=== PATIENT | female | born 1940 | race Caucasian/White ===

== ENCOUNTER 2024-10-20 01:09 | Inpatient (IN) ==
[2024-10-20] MEDS: IPRATROPIUM/ALBUTEROL 3 ML AMPUL.NEB NEB ONE (01:30)
[2024-10-20 02:07] LABS: Basophils # (Auto) 0.07 K/mcL (0.00-0.30); Basophils % (Auto) 0.8 % (0.0-2.0); Eosinophils # (Auto) 0.51 K/mcL (0.00-0.70); Eosinophils % (Auto) 5.9 % (0.0-7.0); Hematocrit 31.4 % (34.1-44.9); Hemoglobin 9.6 g/dL (11.2-15.7); Lymphocytes # (Auto) 0.92 K/mcL (1.50-4.80); Lymphocytes % (Auto) 10.7 % (15.5-49.0); Mean Cell Volume 97.2 fL (80.0-100.0); Mean Corpuscular HGB Conc 30.6 g/dL (31.0-36.0); Mean Platelet Volume 8.9 fL (8.8-12.5); Monocytes # (Auto) 1.56 K/mcL (0.10-0.90); Monocytes % (Auto) 18.1 % (1.0-12.0); Neutrophils % (Auto) 64.3 % (38.0-78.0); Platelet Count 233 K/mcL (140-440); RBC 3.23 M/mcL (3.59-5.38); Red Cell Distribution Width 15.2 % (11.5-14.5); WBC 8.6 K/mcL (4.5-11.0)
[2024-10-20 02:11] LABS: ALT/SGPT 13 U/L (<40); AST/SGOT 21 U/L (<32); Albumin 3.5 gm/dL (3.2-5.2); Albumin/Globulin Ratio 1.3 (1.0-2.3); Alkaline Phosphatase 116 U/L (39-117); Bilirubin,Total 0.3 mg/dL (0.1-1.0); Blood Urea Nitrogen 25 mg/dL (8-23); Calcium 8.4 mg/dL (8.6-10.4); Carbon Dioxide 27 mmol/L (22-30); Chloride 99 mmol/L (96-108); Globulin 2.7 gm/dL (2.2-3.7); Glomerular Filtration Rate 9; Glucose 132 mg/dL (70-105); Potassium 4.5 mmol/L (3.3-5.1); Sodium 139 mmol/L (133-145)
[2024-10-20] MEDS: cefTRIAXone 1 GM VIAL IV ONE (03:39)
[2024-10-20] MEDS ORDERED: ONDANSETRON 4 MG/2 ML VIAL IV PRN ×2 (03:48→08:49)
[2024-10-20] MEDS ORDERED: IPRATROPIUM/ALBUTEROL 3 ML AMPUL.NEB NEB PRN ×2 (03:48→08:49)
[2024-10-20] MEDS ORDERED: HEPARIN 10,000 UNIT/10 ML VIAL IV PRN (06:09)
[2024-10-20] MEDS ORDERED: 0.9 % SODIUM CHLORIDE 1,000 ML IV PRN (06:09)
[2024-10-20] MEDS ORDERED: ALBUTEROL SULFATE 60 PUFF INHALER INH PRN (08:47)
[2024-10-20] MEDS ORDERED: traZODone HCL 50 MG TABLET PO PRN (08:49)
[2024-10-20] MEDS ORDERED: guaiFENesin/DEXTROMETHORPHAN 5ML UD CUP PO PRN (08:52)
[2024-10-20] MEDS: FLUTICASONE/SALMETEROL 250/50 INHALER #14 INH SCH (10:25)
[2024-10-20] MEDS: CRANBERRY 4200 MG PO SCH (11:03)
[2024-10-20] MEDS: SEVELAMER 800 MG TABLET PO SCH (11:04)
[2024-10-20] MEDS: MONTELUKAST 10 MG TABLET PO SCH (11:05)
[2024-10-20] MEDS: FUROSEMIDE 40 MG TABLET PO SCH (11:05)
[2024-10-20] MEDS: OMEPRAZOLE 20 MG CAPSULE PO SCH (11:06)
[2024-10-20] MEDS: APIXABAN 2.5 MG TABLET PO SCH (11:07)
[2024-10-20] MEDS: SERTRALINE 50 MG TABLET PO SCH (11:07)
[2024-10-20] MEDS: CALCITRIOL 0.25 MCG CAPSULE PO SCH (11:07)
[2024-10-20] MEDS: CALCIUM POLYCARBOPHIL 1 TABLET PO SCH (11:08)
[2024-10-20] MEDS: CINACALCET 30 MG TABLET PO SCH (11:08)
[2024-10-20] MEDS: VITAMIN D3 125 MCG TABLET PO SCH (11:08)
[2024-10-20] MEDS: FOLIC ACID/VITAMIN B COMP W-C 1 TAB TABLET PO SCH (11:09)
[2024-10-20] MEDS: DOCUSATE SODIUM 100 MG CAPSULE PO SCH (11:12)
[2024-10-20] MEDS: ROSUVASTATIN 10 MG TABLET PO SCH (11:13)
[2024-10-20] MEDS: LOPERAMIDE 2 MG CAPSULE PO SCH (11:16)
[2024-10-20] MEDS: ACETAMINOPHEN 325 MG TABLET PO SCH (11:21)
[2024-10-20] MEDS: GABAPENTIN 100 MG CAPSULE PO SCH (14:03)
[2024-10-20] MEDS: AZITHROMYCIN 500 MG in 0.9 % SODIUM CHLORIDE 250 ML IV SCH (14:17)
[2024-10-20] MEDS: 0.9 % SODIUM CHLORIDE 10 ML SYRINGE IV SCH (14:19)
[2024-10-20] MEDS: cefTRIAXone 2 GM in DEXTROSE 5% IN WATER 50 ML IV SCH (17:00)
[2024-10-20] MEDS: MIRTAZAPINE 15 MG TABLET PO SCH (20:24)
[2024-10-20] MEDS: SENNOSIDES 1 TABLET PO SCH (20:24)
[2024-10-21 06:22] LABS: Basophils # (Auto) 0.08 K/mcL (0.00-0.30); Basophils % (Auto) 0.9 % (0.0-2.0); Eosinophils # (Auto) 0.41 K/mcL (0.00-0.70); Eosinophils % (Auto) 4.8 % (0.0-7.0); Hematocrit 31.7 % (34.1-44.9); Hemoglobin 9.4 g/dL (11.2-15.7); Lymphocytes # (Auto) 0.92 K/mcL (1.50-4.80); Lymphocytes % (Auto) 10.8 % (15.5-49.0); Mean Corpuscular HGB Conc 29.7 g/dL (31.0-36.0); Monocytes # (Auto) 1.97 K/mcL (0.10-0.90); Monocytes % (Auto) 23.2 % (1.0-12.0); Neutrophils % (Auto) 60.1 % (38.0-78.0); Platelet Count 198 K/mcL (140-440); RBC 3.17 M/mcL (3.59-5.38); Red Cell Distribution Width 15.2 % (11.5-14.5); WBC 8.5 K/mcL (4.5-11.0)
[2024-10-21 06:37] LABS: Phosphorous 2.5 mg/dL (2.5-4.5)
[2024-10-21 06:40] LABS: ALT/SGPT 10 U/L (<40); AST/SGOT 16 U/L (<32); Albumin 3.3 gm/dL (3.2-5.2); Albumin/Globulin Ratio 1.3 (1.0-2.3); Alkaline Phosphatase 94 U/L (39-117); Bilirubin,Total 0.3 mg/dL (0.1-1.0); Blood Urea Nitrogen 14 mg/dL (8-23); Calcium 8.3 mg/dL (8.6-10.4); Carbon Dioxide 27 mmol/L (22-30); Chloride 98 mmol/L (96-108); Globulin 2.6 gm/dL (2.2-3.7); Glomerular Filtration Rate 14; Glucose 91 mg/dL (70-105); Potassium 4.7 mmol/L (3.3-5.1); Sodium 135 mmol/L (133-145)
[2024-10-21] MEDS: VILANTEROL INH SCH (08:10)
[2024-10-21] MEDS: UMECLIDINIUM INH SCH (08:10)
[2024-10-21] MEDS: FLUTICASONE FUROATE INH SCH (08:10)
[2024-10-21] MEDS ORDERED: NON FORMULARY MEDICATION 1 DOSE MISCELL (Fluticasone-Umeclidin-Vilanter [Trelegy Ellipta] INHALATION SCH (09:00)
[2024-10-21] MEDS: METOPROLOL SUCCINATE 50 MG TAB.XL.24H PO SCH (12:10)
[2024-10-21] MEDS: BACLOFEN 10 MG TABLET PO PRN (12:11)
[2024-10-22 06:20] LABS: Phosphorous 3.3 mg/dL (2.5-4.5)
[2024-10-22 06:21] LABS: ALT/SGPT 9 U/L (<40); AST/SGOT 15 U/L (<32); Albumin 2.9 gm/dL (3.2-5.2); Albumin/Globulin Ratio 1.1 (1.0-2.3); Alkaline Phosphatase 89 U/L (39-117); Bilirubin,Total 0.3 mg/dL (0.1-1.0); Blood Urea Nitrogen 26 mg/dL (8-23); Calcium 8.2 mg/dL (8.6-10.4); Carbon Dioxide 26 mmol/L (22-30); Chloride 99 mmol/L (96-108); Globulin 2.6 gm/dL (2.2-3.7); Glomerular Filtration Rate 9; Glucose 88 mg/dL (70-105); Potassium 4.3 mmol/L (3.3-5.1); Sodium 134 mmol/L (133-145)
[2024-10-22 06:26] LABS: Basophils # (Auto) 0.06 K/mcL (0.00-0.30); Basophils % (Auto) 0.9 % (0.0-2.0); Eosinophils # (Auto) 0.53 K/mcL (0.00-0.70); Eosinophils % (Auto) 7.7 % (0.0-7.0); Hematocrit 27.9 % (34.1-44.9); Hemoglobin 8.6 g/dL (11.2-15.7); Lymphocytes # (Auto) 1.14 K/mcL (1.50-4.80); Lymphocytes % (Auto) 16.5 % (15.5-49.0); Mean Cell Volume 97.9 fL (80.0-100.0); Mean Corpuscular HGB Conc 30.8 g/dL (31.0-36.0); Mean Platelet Volume 9.2 fL (8.8-12.5); Monocytes # (Auto) 1.36 K/mcL (0.10-0.90); Monocytes % (Auto) 19.7 % (1.0-12.0); Neutrophils % (Auto) 54.9 % (38.0-78.0); Platelet Count 190 K/mcL (140-440); RBC 2.85 M/mcL (3.59-5.38); Red Cell Distribution Width 15.2 % (11.5-14.5); WBC 6.9 K/mcL (4.5-11.0)
[2024-10-22] MEDS: AZITHROMYCIN 250 MG TABLET PO SCH (08:18)
== END 2024-10-22 13:34 | disposition home health service (06) | DRG 193 ==
LOC: ED 01:09 → ICU 03:58
PROVIDERS: ADMIT Internal Medicine; ATTEND Internal Medicine

== ENCOUNTER 2024-10-23 08:47 | Inpatient (IN) ==
[2024-10-23] MEDS ORDERED: IOPAMIDOL 100 ML BOTTLE IV ONE (08:48)
[2024-10-23 10:03] LABS: Basophils # (Auto) 0.06 K/mcL (0.00-0.30); Eosinophils # (Auto) 0.44 K/mcL (0.00-0.70); Eosinophils % (Auto) 7.3 % (0.0-7.0); Hematocrit 31.1 % (34.1-44.9); Hemoglobin 9.7 g/dL (11.2-15.7); Lymphocytes # (Auto) 1.33 K/mcL (1.50-4.80); Lymphocytes % (Auto) 22.1 % (15.5-49.0); Mean Cell Volume 96.3 fL (80.0-100.0); Mean Corpuscular HGB Conc 31.2 g/dL (31.0-36.0); Mean Platelet Volume 9.3 fL (8.8-12.5); Monocytes % (Auto) 13.3 % (1.0-12.0); Neutrophils % (Auto) 56.1 % (38.0-78.0); Platelet Count 271 K/mcL (140-440); RBC 3.23 M/mcL (3.59-5.38); Red Cell Distribution Width 15.2 % (11.5-14.5)
[2024-10-23 10:26] LABS: Thyroid Stimulating Hormone 1.53 uIU/mL (0.27-5.01)
[2024-10-23 10:30] LABS: ALT/SGPT 11 U/L (<40); AST/SGOT 18 U/L (<32); Albumin 3.3 gm/dL (3.2-5.2); Albumin/Globulin Ratio 1.1 (1.0-2.3); Alkaline Phosphatase 102 U/L (39-117); Bilirubin,Total < 0.2 mg/dL (0.1-1.0); Blood Urea Nitrogen 34 mg/dL (8-23); Calcium 8.7 mg/dL (8.6-10.4); Carbon Dioxide 23 mmol/L (22-30); Chloride 100 mmol/L (96-108); Globulin 2.9 gm/dL (2.2-3.7); Glomerular Filtration Rate 7; Glucose 91 mg/dL (70-105); Potassium 4.7 mmol/L (3.3-5.1); Sodium 136 mmol/L (133-145)
[2024-10-23 11:00] LABS: Free T4 (Free Thyroxine) 1.05 ng/dL (0.93-1.70)
[2024-10-23 11:15] LABS: Appearance,Urine Clear (Clear); Bacteria,Urine Rare /hpf (0); Bilirubin,Urine Negative (Negative); Color,Urine Yellow; Glucose,Urine (UA) Negative (Negative); Ketones,Urine Negative (Negative); Leukocyte Esterase,Urine Small /uL (Negative); Nitrate,Urine Negative (Negative); PH,Urine 7.5 (5.0-9.0); Protein,Urine 100 mg/dL (Negative); Specific Gravity,Urine 1.015 (1.000-1.035); Urine Blood Trace-intact ery/mcL (Negative); Urine RBC 5 /hpf (0-3); Urine Squamous Epithelial Cell 7 /hpf (0-4); Urine WBC 2 /hpf (0-4); Urobilinogen,Urine Normal
[2024-10-23] MEDS ORDERED: ACETAMINOPHEN 325 MG TABLET PO PRN (14:22)
[2024-10-23] MEDS ORDERED: IPRATROPIUM/ALBUTEROL 3 ML AMPUL.NEB NEB PRN (14:22)
[2024-10-23] MEDS: 0.9 % SODIUM CHLORIDE 10 ML SYRINGE IV SCH (16:41)
[2024-10-23] MEDS: SEVELAMER 800 MG TABLET PO SCH (16:41)
[2024-10-23] MEDS: MIRTAZAPINE 15 MG TABLET PO SCH (20:54)
[2024-10-23] MEDS: APIXABAN 2.5 MG TABLET PO SCH (20:54)
[2024-10-23] MEDS: cefTRIAXone 1 GM VIAL IV SCH (20:55)
[2024-10-23] MEDS ORDERED: AZITHROMYCIN 500 MG in 0.9 % SODIUM CHLORIDE 250 ML IV SCH (21:00)
[2024-10-23] MEDS: DOXYCYCLINE 100 MG in DEXTROSE 5% IN WATER 100 ML IV SCH (21:45)
[2024-10-24 06:32] LABS: Basophils # (Auto) 0.08 K/mcL (0.00-0.30); Basophils % (Auto) 1.1 % (0.0-2.0); Eosinophils # (Auto) 0.54 K/mcL (0.00-0.70); Eosinophils % (Auto) 7.6 % (0.0-7.0); Hematocrit 31.1 % (34.1-44.9); Hemoglobin 9.6 g/dL (11.2-15.7); Lymphocytes # (Auto) 0.88 K/mcL (1.50-4.80); Lymphocytes % (Auto) 12.3 % (15.5-49.0); Mean Cell Volume 95.1 fL (80.0-100.0); Mean Corpuscular HGB Conc 30.9 g/dL (31.0-36.0); Mean Platelet Volume 8.8 fL (8.8-12.5); Monocytes # (Auto) 1.34 K/mcL (0.10-0.90); Monocytes % (Auto) 18.8 % (1.0-12.0); Neutrophils % (Auto) 60.1 % (38.0-78.0); Platelet Count 290 K/mcL (140-440); RBC 3.27 M/mcL (3.59-5.38); WBC 7.1 K/mcL (4.5-11.0)
[2024-10-24 07:01] LABS: ALT/SGPT 13 U/L (<40); AST/SGOT 23 U/L (<32); Albumin 3.3 gm/dL (3.2-5.2); Albumin/Globulin Ratio 1.3 (1.0-2.3); Alkaline Phosphatase 95 U/L (39-117); Bilirubin,Direct < 0.2 mg/dL (0-0.3); Bilirubin,Total 0.3 mg/dL (0.1-1.0); Blood Urea Nitrogen 15 mg/dL (8-23); Calcium 8.4 mg/dL (8.6-10.4); Carbon Dioxide 27 mmol/L (22-30); Chloride 97 mmol/L (96-108); Globulin 2.6 gm/dL (2.2-3.7); Glomerular Filtration Rate 13; Glucose 74 mg/dL (70-105); Lactate Dehydrogenase 153 U/L (135-225); Phosphorous 2.6 mg/dL (2.5-4.5); Potassium 4.2 mmol/L (3.3-5.1); Sodium 136 mmol/L (133-145); Triglycerides 77 mg/dL (<150); Uric Acid 2.9 mg/dL (2.5-8.0)
[2024-10-24] MEDS: OMEPRAZOLE 20 MG CAPSULE PO SCH (07:30)
[2024-10-24] MEDS ORDERED: cefTRIAXone 1 GM VIAL IV SCH (09:00)
[2024-10-24] MEDS ORDERED: AZITHROMYCIN 500 MG in 0.9 % SODIUM CHLORIDE 250 ML IV SCH (09:00)
[2024-10-24] MEDS: SERTRALINE 50 MG TABLET PO SCH (10:16)
[2024-10-24] MEDS: METOPROLOL SUCCINATE 50 MG TAB.XL.24H PO SCH (10:16)
[2024-10-24] MEDS: VITAMIN D3 125 MCG TABLET PO SCH (10:16)
[2024-10-24] MEDS: CALCIUM POLYCARBOPHIL 1 TABLET PO SCH (10:18)
[2024-10-24] MEDS: ROSUVASTATIN 10 MG TABLET PO SCH (12:16)
[2024-10-24] MEDS: Fluticasone-Umeclidin-Vilanter [Trelegy Ellipta] INH SCH (12:21)
[2024-10-24] MEDS: DOXYCYCLINE HYCLATE 100 MG TABLET.ORL PO SCH (21:10)
[2024-10-24] MEDS: ONDANSETRON 4 MG/2 ML VIAL IV PRN (22:15)
[2024-10-25 06:19] LABS: Basophils # (Auto) 0.06 K/mcL (0.00-0.30); Basophils % (Auto) 0.9 % (0.0-2.0); Eosinophils # (Auto) 0.21 K/mcL (0.00-0.70); Eosinophils % (Auto) 3.2 % (0.0-7.0); Hematocrit 30.9 % (34.1-44.9); Hemoglobin 9.6 g/dL (11.2-15.7); Lymphocytes # (Auto) 0.93 K/mcL (1.50-4.80); Lymphocytes % (Auto) 14.2 % (15.5-49.0); Mean Cell Volume 95.4 fL (80.0-100.0); Mean Corpuscular HGB Conc 31.1 g/dL (31.0-36.0); Mean Platelet Volume 8.8 fL (8.8-12.5); Monocytes # (Auto) 1.32 K/mcL (0.10-0.90); Monocytes % (Auto) 20.2 % (1.0-12.0); Neutrophils % (Auto) 61.3 % (38.0-78.0); Platelet Count 293 K/mcL (140-440); RBC 3.24 M/mcL (3.59-5.38); WBC 6.5 K/mcL (4.5-11.0)
[2024-10-25 06:35] LABS: ALT/SGPT 12 U/L (<40); AST/SGOT 18 U/L (<32); Albumin 3.2 gm/dL (3.2-5.2); Albumin/Globulin Ratio 1.2 (1.0-2.3); Alkaline Phosphatase 91 U/L (39-117); Bilirubin,Direct < 0.2 mg/dL (0-0.3); Bilirubin,Total 0.2 mg/dL (0.1-1.0); Blood Urea Nitrogen 22 mg/dL (8-23); Calcium 8.5 mg/dL (8.6-10.4); Carbon Dioxide 27 mmol/L (22-30); Chloride 98 mmol/L (96-108); Globulin 2.6 gm/dL (2.2-3.7); Glomerular Filtration Rate 9; Glucose 92 mg/dL (70-105); Lactate Dehydrogenase 141 U/L (135-225); Phosphorous 3.8 mg/dL (2.5-4.5); Potassium 4.4 mmol/L (3.3-5.1); Sodium 136 mmol/L (133-145); Triglycerides 65 mg/dL (<150)
[2024-10-25] MEDS: GABAPENTIN 100 MG CAPSULE PO SCH ×2 (07:12→20:32)
[2024-10-25] MEDS: cefTRIAXone 1 GM VIAL IV SCH (14:12)
[2024-10-25] MEDS: CINACALCET 30 MG TABLET PO SCH (14:14)
[2024-10-25] MEDS: CALCITRIOL 0.25 MCG CAPSULE PO SCH (14:14)
[2024-10-26 06:18] LABS: Basophils # (Auto) 0.08 K/mcL (0.00-0.30); Basophils % (Auto) 0.9 % (0.0-2.0); Eosinophils # (Auto) 0.23 K/mcL (0.00-0.70); Eosinophils % (Auto) 2.6 % (0.0-7.0); Hematocrit 32.8 % (34.1-44.9); Hemoglobin 10.4 g/dL (11.2-15.7); Lymphocytes % (Auto) 11.4 % (15.5-49.0); Mean Cell Volume 94.8 fL (80.0-100.0); Mean Corpuscular HGB Conc 31.7 g/dL (31.0-36.0); Mean Platelet Volume 8.7 fL (8.8-12.5); Monocytes % (Auto) 19.3 % (1.0-12.0); Neutrophils % (Auto) 65.7 % (38.0-78.0); Platelet Count 317 K/mcL (140-440); RBC 3.46 M/mcL (3.59-5.38); Red Cell Distribution Width 14.7 % (11.5-14.5); WBC 8.8 K/mcL (4.5-11.0)
[2024-10-26 06:28] LABS: ALT/SGPT 10 U/L (<40); AST/SGOT 18 U/L (<32); Albumin 3.5 gm/dL (3.2-5.2); Albumin/Globulin Ratio 1.3 (1.0-2.3); Alkaline Phosphatase 98 U/L (39-117); Bilirubin,Direct < 0.2 mg/dL (0-0.3); Bilirubin,Total 0.3 mg/dL (0.1-1.0); Blood Urea Nitrogen 16 mg/dL (8-23); Calcium 8.7 mg/dL (8.6-10.4); Carbon Dioxide 28 mmol/L (22-30); Chloride 96 mmol/L (96-108); Globulin 2.7 gm/dL (2.2-3.7); Glomerular Filtration Rate 14; Glucose 97 mg/dL (70-105); Lactate Dehydrogenase 134 U/L (135-225); Phosphorous 2.8 mg/dL (2.5-4.5); Potassium 4.1 mmol/L (3.3-5.1); Sodium 132 mmol/L (133-145); Triglycerides 70 mg/dL (<150); Uric Acid 2.7 mg/dL (2.5-8.0)
[2024-10-26] MEDS ORDERED: LOPERAMIDE 2 MG CAPSULE PO PRN (09:30)
[2024-10-27] MEDS ORDERED: MONTELUKAST 10 MG TABLET PO SCH (09:00)
== END 2024-10-26 12:46 | DRG 193 ==
LOC: ED 08:47 → ICU 13:59
PROVIDERS: ADMIT Student in an Organized Health Care Education/Training Program; ATTEND Student in an Organized Health Care Education/Training Program